=== PATIENT | female | born 1955 | race Caucasian/White ===

== ENCOUNTER 2023-04-08 16:06 | Emergency (ER) | payer MEDICARE, MEDICAID ==
[2023-04-08 16:16] VITALS: BP 156/75
[2023-04-08] MEDS ORDERED: LIDOCAINE PATCH 5% TOP STA (16:41)
--- NOTE | 2023-04-08 16:50 | ED Physician Documentation ---
PD HPI LOWER EXT INJURY - Stated complaint Stated Complaint: LT KNEE PX - Chief complaint Chief Complaint: Ext Problem - History obtained from History obtained from: Patient - Additional information Additional information: Patient is a 68-year-old female presenting for evaluation of left knee pain that is been bothering her for the past 1 year but worse over the past several months. Patient states that she watches her grandchildren and it often bothers her with a lot of bending and lifting. She states that yesterday she walked for about an hour and normally she walks only 30 minutes and the pain has worsened today. She denies any specific trauma to the leg. She also reports right elbow pain after a fall in November. She states that she has not seen her primary care provider for either of these issues. She uses ice and ibuprofen occasionally which do help. At times she also reports having some pain in the left buttock that radiates into the left leg and towards her great toe. She does report a history of sciatica on the right. Denies bowel or bladder incontinence, saddle anesthesia, numbness or weakness in the legs. She does not take a blood thinner. Denies fevers. Denies chest pain, back pain, shortness of breath. Review of Systems Constitutional: denies: Fever Cardiac: denies: Chest pain / pressure Respiratory: denies: Dyspnea GI: denies: Abdominal Pain : denies: Dysuria, Incontinent Musculoskeletal: reports: Joint pain Neurologic: denies: Headache PD PAST MEDICAL HISTORY - Present Medications Home Medications: Ambulatory Orders Medication Instructions Recorded Confirmed Lidocaine Patch 5% [Lidoderm Patch] 1 patch TOP DAILY PRN #10 patch 04/08/23 - Allergies Allergies/Adverse Reactions: Allergies Allergy/AdvReac Type Severity Reaction Status Date / Time Antibiotics Allergy Anaphylaxis Uncoded 04/08/23 16:12 PD ED PE NORMAL - General General: Alert and oriented X 3, No acute distress, Well developed/nourished - HEENT HEENT: Atraumatic, PERRL, EOMI - Neck Neck: Supple, no meningeal sign, No bony TTP - Cardiac Cardiac: RRR, Strong equal pulses - Respiratory Respiratory: No respiratory distress, Clear bilaterally - Abdomen Abdomen: Soft, Non tender - Back Back: No spinal TTP - Extremities Extremities: No deformity, No calf tenderness / cord, Other (Reports pain with range of motion of left knee, normal range of motion of right elbow, no deformity,) - Neuro Neuro: Alert and oriented X 3, No motor deficit, No sensory deficit, Normal speech Results - Vitals Vitals: Vital Signs - 24 hr 04/08/23 16:12 Temperature 36.5 C Heart Rate 72 Respiratory 16 Rate Blood Pressure 156/75 H O2 Saturation 99 Oxygen O2 Source Room air PD Medical Decision Making - ED course Complexity details: reviewed results, re-evaluated patient ED course: Patient is a 68-year-old female presenting for evaluation of left knee pain and right elbow pain which have been ongoing for months. Patient has no visible deformities on exam. Distal pulses are intact. She is ambulatory and Has good range of motion of both joints. No signs of infection. No calf tenderness or swelling to suggest DVT. Her symptoms have additionally been ongoing for months which makes DVT less likely. An x-ray was obtained which I reviewed of the left knee and right elbow. I see no fractures or dislocations. Patient counseled on continued supportive care As well as need for follow-up with PCP. She is agreeable to trial of Gonzales wrap and walker here. Departure - Departure Disposition: 01 Home, Self Care Clinical Impression: Left knee pain, Right elbow pain Condition: Stable Instructions: ED Knee Pain UKO Prescriptions: Lidocaine Patch 5% [Lidoderm Patch] 1 patch TOP DAILY PRN #10 patch PRN Reason: pain Comments: The x-rays of your left knee and right elbow do not show any broken or out of place bones. However you could have underlying injuries which are not seen on an x-ray. At this time we have applied an Gonzales wrap to the left knee and given you a walker. I would continue with lidocaine patches and have sent a prescription to [facility] in [place]. Please also continue with anti- inflammatory such as acetaminophen, ice, elevation and rest. Given that your symptoms have been ongoing for several months I would recommend close follow-up with your primary care provider as you may need further testing such as an MRI. If it anytime you develop any new or worsening symptoms or any new concerns please return to the emergency department. Forms: PCP List Discharge Date/Time: 04/08/23 17:44
--- NOTE | 2023-04-08 17:09 | XRAY Report ---
PROCEDURE: Knee 3 View LT INDICATIONS: pain TECHNIQUE: 3 views of the left knee(s) were acquired. COMPARISON: None. FINDINGS: Bones: No fractures or dislocations. No suspicious bony lesions. Soft tissues: No knee joint effusion. No suspicious soft tissue calcifications or masses. IMPRESSION: No acute bony abnormality. Reviewed by: Kalyan Pikcard MD on 04/08/2023 4:07 PM AKOSMIN Approved by: Kalyan Pickard MD on 04/08/2023 4:07 PM AKDT Station ID: [id number]
--- NOTE | 2023-04-08 17:17 | XRAY Report ---
PROCEDURE: Elbow 3 View RT INDICATIONS: fall 5 months ago/pain TECHNIQUE: 3 views of the elbow were acquired. COMPARISON: None. FINDINGS: Bones: No fractures or dislocations. No suspicious bony lesions. Soft tissues: No effusion. No suspicious soft tissue calcifications or masses. IMPRESSION: No acute bony abnormality. No degenerative change. Reviewed by: Doc Simon MD on 04/08/2023 5:16 PM PDT Approved by: Doc Simon MD on 04/08/2023 5:16 PM PDT Station ID: [id number]
== END 2023-04-08 17:44 | disposition home or self-care (01) ==
LOC: ED 16:06
DX: M25.562 Pain in left knee (principal); M25.521 Pain in right elbow
CPT/HCPCS: 73080; 73562; 99283; A9270

== ENCOUNTER 2023-08-07 08:00 | Outpatient (CLI) | payer MEDICARE, MEDICAID ==
[2023-08-08 12:23] LABS: BILIRUBIN,URINE NEGATIVE (NEGATIVE); GLUCOSE, URINE (UA) 100 mg/dL (NEGATIVE); KETONES,URINE (UA) NEGATIVE (NEGATIVE); LEUKOCYTE ESTERASE, URINE SMALL (NEGATIVE); NITRITE,URINE POSITIVE (NEGATIVE); OCCULT BLOOD,URINE TRACE-INTA (NEGATIVE); PROTEIN,URINE NEGATIVE (NEGATIVE); UROBILINOGEN,URINE 0.2 (NORMAL) E.U./dL (NORMAL)
[2023-08-08 12:26] LABS: CLARITY,URINE TURBID (CLEAR)
[2023-08-08 12:35] LABS: AMORPHOUS SEDIMENT,UR Moderate /LPF; BACTERIA,URINE Moderate /HPF (None Seen); RBC,URINE 0-5 /HPF (0-5); SQUAMOUS EPITHELIAL CELL,UR FEW Squamous (<= Few)
== END 2023-08-07 23:59 | disposition home or self-care (01) ==
LOC: LAB.N 08:00
PROVIDERS: ATTEND Nurse Practitioner
DX: R30.0 Dysuria (principal)
CPT/HCPCS: 81001; 81003; 87086; 87181

== ENCOUNTER 2023-11-17 10:50 | Outpatient (CLI) | payer MEDICARE, MEDICAID ==
[2023-11-17 19:06] LABS: BASOPHILS % (AUTO) 0.6 %; EOSINOPHILS # (AUTO) 0.1 10^3/uL (0.0-0.7); HCT - HEMATOCRIT 41.3 % (37.0-47.0); HGB - HEMOGLOBIN 12.8 g/dL (12.0-16.0); LYMPHOCYTES # (AUTO) 2.3 10^3/uL (1.5-3.5); MEAN CORPUSCULAR HEMOGLOBIN 27.3 pg (27.0-31.0); MEAN CORPUSCULAR VOLUME 88.1 fL (81.0-99.0); MEAN PLATELET VOLUME 10.4 fL (7.9-10.8); MONOCYTES # (AUTO) 0.4 10^3/uL (0.0-1.0); MONOCYTES % (AUTO) 8.2 %; NEUTROPHILS # (AUTO) 2.2 10^3/uL (1.5-6.6); PLT - PLATELET COUNT 276 10^3/uL (130-450); RED BLOOD COUNT 4.69 10^6/uL (4.20-5.40); RED CELL DISTRIBUTION WIDTH 13.6 % (12.0-15.0)
[2023-11-17 19:14] LABS: ESTIMATED AVERAGE GLUCOSE 177 mg/dL (70-100); HEMOGLOBIN A1c% 7.8 % (4.27-6.07)
[2023-11-17 19:20] LABS: ALBUMIN 4.2 g/dL (3.2-5.5); ALBUMIN/GLOBULIN RATIO 1.5 (1.0-2.2); ALKALINE PHOSPHATASE 56 IU/L (42-121); ALT ALANINE AMINOTRANSFERASE 15 IU/L (10-60); AST ASPARTATE AMINOTRANSFERASE 20 IU/L (10-42); BILIRUBIN,TOTAL 0.4 mg/dL (0.2-1.0); BUN - BLOOD UREA NITROGEN 17 mg/dL (6-20); CALCIUM 9.6 mg/dL (8.5-10.3); CARBON DIOXIDE - CO2 28 mmol/L (21-32); CHLORIDE 102 mmol/L (101-111); CHOL/HDL RATIO 2.5 (<4.4); CHOLESTEROL 168 mg/dL; CREATININE 0.7 mg/dL (0.6-1.3); GFR - MDRD 83 (>89); GLUCOSE 149 mg/dL (74-104); HDL CHOLESTEROL 66 mg/dL; LDL CHOLESTEROL,CALCULATED 68 mg/dL; POTASSIUM 4.1 mmol/L (3.5-4.5); SODIUM 136 mmol/L (135-145); TRIGLYCERIDES 170 mg/dL (48-352); VLDL CHOLESTEROL 34 mg/dL
[2023-11-17 19:35] LABS: CREATININE,URINE 72.2 mg/dL
[2023-11-17 19:36] LABS: THYROID STIMULATING HORMONE 2.04 uIU/mL (0.34-5.60)
[2023-11-17 19:39] LABS: MICROALBUMIN,URINE < 0.7 mg/dL
== END 2023-11-17 10:51 | disposition home or self-care (01) ==
LOC: LAB.N 10:50
PROVIDERS: ATTEND Nurse Practitioner
DX: I10 Essential (primary) hypertension (principal); Z13.220 Encounter for screening for lipoid disorders; E11.9 Type 2 diabetes mellitus without complications; R53.83 Other fatigue
CPT/HCPCS: 36415; 80053; 80061; 82043; 82570; 83036; 83721; 84443; 85025

== ENCOUNTER 2024-01-14 15:12 | Emergency (ER) | payer MEDICARE, MEDICAID ==
[2024-01-14 15:43] VITALS: O2SAT 98
--- NOTE | 2024-01-14 15:49 | XRAY Report ---
PROCEDURE: Chest 1V INDICATIONS: Chest pain TECHNIQUE: One view of the chest was acquired. COMPARISON: None. FINDINGS: Surgical changes and devices: None. Lungs and pleura: No pleural effusions or pneumothorax. Lungs are clear. Mediastinum: Mediastinal contours appear normal. Heart size is normal. Bones and chest wall: No suspicious bony lesions. Overlying soft tissues appear unremarkable. IMPRESSION: No acute cardiopulmonary process. Reviewed by: Santi Lu MD on 01/14/2024 3:48 PM PDT Approved by: Santi Lu MD on 01/14/2024 3:48 PM PDT Station ID: [id number]
[2024-01-14 16:02] LABS: BASOPHILS % (AUTO) 0.7 %; EOSINOPHILS # (AUTO) 0.1 10^3/uL (0.0-0.7); EOSINOPHILS % (AUTO) 1.5 %; HCT - HEMATOCRIT 40.8 % (37.0-47.0); HGB - HEMOGLOBIN 13.2 g/dL (12.0-16.0); LYMPHOCYTES # (AUTO) 2.2 10^3/uL (1.5-3.5); LYMPHOCYTES % (AUTO) 39.3 %; MEAN CORPUSCULAR HEMOGLOBIN 27.9 pg (27.0-31.0); MEAN CORPUSCULAR HGB CONC 32.4 g/dL (32.0-36.0); MEAN CORPUSCULAR VOLUME 86.3 fL (81.0-99.0); MEAN PLATELET VOLUME 9.6 fL (7.9-10.8); MONOCYTES # (AUTO) 0.4 10^3/uL (0.0-1.0); NEUTROPHILS # (AUTO) 2.8 10^3/uL (1.5-6.6); NEUTROPHILS % (AUTO) 50.3 %; PLT - PLATELET COUNT 250 10^3/uL (130-450); RED BLOOD COUNT 4.73 10^6/uL (4.20-5.40); WHITE BLOOD COUNT 5.5 x10^3/uL (4.8-10.8)
[2024-01-14 16:16] LABS: ALBUMIN 4.4 g/dL (3.2-5.5); ALBUMIN/GLOBULIN RATIO 1.6 (1.0-2.2); BILIRUBIN,TOTAL 0.4 mg/dL (0.2-1.0); CALCIUM 10.2 mg/dL (8.5-10.3); CREATININE 0.8 mg/dL (0.6-1.3); TOTAL PROTEIN 7.2 g/dL (6.4-8.9)
[2024-01-14 16:18] LABS: TROPONIN I HIGH SENSITIVITY 2.6 ng/L (2.3-14.8)
--- NOTE | 2024-01-14 17:16 | ED Physician Documentation ---
PD HPI CHEST PAIN - Stated complaint Stated Complaint: CHEST PX - Chief complaint Chief Complaint: Cardiac - History obtained from History obtained from: Patient - Additional information Additional information: 68-year-old woman with history of type 2 diabetes on metformin and hypercholesterolemia. She presents with evaluation of chest pain. For 3 days she has had some intermittent chest pains. They are nonexertional. It is a pinpoint pain just to the left of the sternum and nonradiating. She has not really noticed any pattern to it. Of note, yesterday she did more exercise than normal and walked up a large hill, during which time she did not get any chest pain. She has chronic shortness of breath, not worse than normal. Denies recent travel, pedal edema, or calf pain. PD PAST MEDICAL HISTORY - Past Medical History Past Medical History: Yes Cardiovascular: High cholesterol Endocrine/Autoimmune: Type 2 diabetes - Past Surgical History Past Surgical History: No - Present Medications Home Medications: Ambulatory Orders Medication Instructions Recorded Confirmed Lidocaine Patch 5% [Lidoderm Patch] 1 patch TOP DAILY PRN #10 patch 04/08/23 - Allergies Allergies/Adverse Reactions: Allergies Allergy/AdvReac Type Severity Reaction Status Date / Time Antibiotics Allergy Anaphylaxis Uncoded 01/14/24 15:14 - Social History Does the pt smoke?: No Smoking Status: Never smoker Does the pt drink ETOH?: No Does the pt have substance abuse?: No PD ED PE NORMAL - Vitals Vital signs reviewed: Yes - General General: Alert and oriented X 3, No acute distress - Neck Neck: Supple, no meningeal sign, No bony TTP - Cardiac Cardiac: RRR, No murmur - Respiratory Respiratory: No respiratory distress, Clear bilaterally - Abdomen Abdomen: Non tender - Derm Derm: No rash - Extremities Extremities: No edema, No calf tenderness / cord - Neuro Neuro: Alert and oriented X 3, Normal speech Results - Vitals Vitals: Vital Signs - 24 hr 01/14/24 15:14 Temperature 36.8 C Heart Rate 84 Respiratory 16 Rate Blood Pressure 149/82 H O2 Saturation 98 Oxygen O2 Source Room air - EKG (time done) 1522 EKG releavant findings:: EKG personally interpreted by author of this note. Relevant findings are: Rate: Rate (enter#) (72) Rhythm: NSR [place]: Normal Intervals: Normal [place] QRS: Normal Ischemia: Q waves. No: ST elevation c/w ischemia, ST elevation c/w repol, ST depression, Non specific changes Computer interpretation: Agree with computer - Labs Labs: Laboratory Tests 01/14/24 01/14/24 15:45 15:45 WBC 5.5 RBC 4.73 Hgb 13.2 Hct 40.8 MCV 86.3 MCH 27.9 MCHC 32.4 RDW 13.0 Plt Count 250 MPV 9.6 Neut # (Auto) 2.8 Lymph # (Auto) 2.2 [place] # (Auto) 0.4 Eos # (Auto) 0.1 Baso # (Auto) 0.0 Absolute Nucleated RBC 0.00 Nucleated RBC % 0.0 Sodium 140 Potassium 4.0 Chloride 104 Carbon Dioxide 32 Anion Gap 4.0 L BUN 13 Creatinine 0.8 Estimated GFR (MDRD) 71 L Glucose 115 H Calcium 10.2 Total Bilirubin 0.4 AST 19 ALT 15 Alkaline Phosphatase 61 Troponin I High Sens 2.6 Total Protein 7.2 Albumin 4.4 Globulin 2.8 Albumin/Globulin Ratio 1.6 Lipase 24 - Rads (name of study) Single view chest x-ray is unremarkable Relevant Findings:: Final report received, EMP independent interpretation of test PD Medical Decision Making - ED course ED course: Nothing in the history or physical to suggest PE. Heart score 3 Departure - Departure Disposition: 01 Home, Self Care Clinical Impression: Chest pain Qualifiers: Chest pain type: unspecified Qualified Code(s): R07.9 - Chest pain, unspecified Condition: Good Record reviewed to determine appropriate education?: Yes Instructions: ED Chest Pain NonCardiac Follow-Up: Arleen Coleman ARNP [Primary Care Provider] - Comments: Thankfully there is nothing to suggest any evidence of recent heart damage. That said given your risk factors I do recommend you have stress test in short order. I will email your primary care nurse practitioner to recommend. Return if pain changes, starts lasting longer, becomes more associated with exercise, or any other new or worsening symptoms.
[2024-01-14 17:29] VITALS: BP 144/84
== END 2024-01-14 17:26 | disposition home or self-care (01) ==
LOC: ED 15:12
DX: R07.9 Chest pain, unspecified (principal); E11.9 Type 2 diabetes mellitus without complications; E78.00 Pure hypercholesterolemia, unspecified; Z79.84 Long term (current) use of oral hypoglycemic drugs
CPT/HCPCS: 36415; 80053; 83690; 84484; 85025; 93005; 99283; 99284